=== PATIENT | male | born 1980 | race Caucasian/White ===

== ENCOUNTER 2020-10-19 11:45 | Emergency (ER) | payer OTHER, SELFPAY ==
[2020-10-19 12:01] VITALS: BP 154/94; PULSE 68; RESP 16; TEMP 36.6; O2SAT 98; BMI 34.1
--- NOTE | 2020-10-19 12:19 | XR_ITS ---
WS: [id number] Left leg including the tibia and fibula, AP and lateral views, 10/19/2020 Clinical Data: fall/calf pain Comparison: None. Findings: No fractures or dislocations are seen. The tibia and fibula are intact. The soft tissues are normal. XR/XR tibia fibula LT 2V [id number] Impression: Negative for left leg fracture.
--- NOTE | 2020-10-19 12:19 | XR_ITS ---
WS: [id number] Left knee, 3 views, 10/19/2020 Clinical Data: fall Comparison: None. Findings: No fractures or dislocations are seen. The joint spaces are normal. The patella is intact. The soft t issues are unremarkable. XR/XR knee LT 3V* [id number] Impression: Negative left knee.
--- NOTE | 2020-10-19 12:24 | ED_ITS ---
HPI - Extremity Problem General: Chief complaint: Extremity Injury, Lower Stated complaint: Lt leg pain Time Seen by Provider: 10/19/20 11:57 History of Present Illness: HPI Narrative: The patient is a 40-year-old male who comes to the ER complaining of left calf pain after he was playing with his puppy last night jerking left and right when he tripped left he had a sharp pain in his left calf radiating to his knee and down his leg. He took 600 of ibuprofen last night which did not help much and today he is unable to bear much weight on the left leg or at least walk with comfort. On the left side he walks with the front of his foot because it is painful to touch the heel to the ground where he has pain in his mid to proximal calf. MD Complaint: extremity pain Onset (ago): hour(s) (10) Location: left Quality: sharp Relieving factors: rest Exacerbating factors: range of motion, weight bearing, walking and palpation Associated symptoms: Reports no associated symptoms; Deny chest pain or rash Review of Systems General: Reports: 10 or more systems reviewed and unremarkable except in HPI and below Const: Denies: fatigue Eyes: Denies: change in vision, blurry vision or eye redness ENMT: Denies: throat pain, swelling of lips/tongue, ear or mastoid pain or nasal congestion Card: Denies: chest pain, palpitations, irregular heart rhythm, edema, dyspnea on exertion or orthopnea Resp: Denies: dyspnea, productive cough or non-productive cough GI: Denies: abdominal pain, diarrhea or GI cramping : Denies: flank pain, urinary frequency or urinary urgency Musc: Denies: neck pain, back pain, extremity pain, joint pain, joint redness, limited range of motion or muscle weakness Skin/Breast: Denies: rash, pruritus, erythema, skin pain or skin tenderness Neuro: Denies: headache(s), numbness in extremities, weakness in extremities, sensory changes, difficulty walking, dizziness, confusion or Slurred speech present Psych: Denies: anxiety or depression Endo: Denies: polyuria All/Imm: Denies: urticaria, throat swelling or tongue swelling Physical Exam Const: COMMON NORMALS: no acute distress, average body habitus, patient oriented x3, no limitations, healthy appearing, alert and well nourished GENERAL APPEARANCE: cooperative, comfortable, well kempt and well developed ORIENTATION/CONSCIOUSNESS: Yes awake, Yes oriented to person, Yes oriented to place and Yes oriented to time HENMT: COMMON NORMALS: normocephalic, external ears normal and Normal external nose present HEAD & SCALP: normal to inspection and normocephalic NOSE: Normal external nose present EXTERNAL EAR: Yes external ears normal MOUTH: Normal oral and palatal mucosa present THROAT: posterior oropharynx normal Eye: COMMON NORMALS: Equal, round and reactive pupils present and EOMs intact bilaterally GENERAL EYE: appearance normal, both eyes and all related structures PUPIL: Yes Equal, round and reactive pupils present Neck/C-Spine: COMMON NORMALS: full ROM, no lymphadenopathy, no meningeal signs and no JVD GENERAL: Yes normal visual inspection Lymph: LYMPHATIC: no lymphadenopathy noted Chest: COMMONS NORMALS: normal inspection of the chest and normal palpation of entire chest wall Resp: COMMON NORMALS: normal respiratory effort, No retractions, No use of accessory muscles, clear to auscultation bilaterally and percussion normal EFFORT & INSPECTION: Yes able to speak in complete sentences AUSCULTATION: clear to auscultation bilaterally PERCUSSION: percussion normal Cardio: COMMON NORMALS: no JVD, regular rate, regular rhythm, S1 normal heart sound present, S2 normal heart sound present and Peripheral pulses 2+ throughout RATE: regular rate RHYTHM: regular rhythm HEART SOUNDS: S1 normal heart sound present and S2 normal heart sound present PERIPHERAL PULSES: Peripheral pulses 2+ throughout GI: COMMON NORMALS: Normal to inspection, nondistended, normoactive bowel sounds present, Soft to palpation, non-tender and no masses INSPECTION: Yes normal to inspection PALPATION: Yes Soft to palpation : COMMON NORMALS: Yes no CVA tenderness BLADDER/KIDNEY EXAM: Yes no CVA tenderness Back/Pelvis: COMMON NORMALS: no CVA tenderness, thoracic and lumbar spine normal to inspection, no thoracic nor lumbar tenderness and thoraco-lumbar ROM normal Extremity: COMMON NORMALS: normal to inspection, full ROM, capillary refill normal, no joint enlargement and no pedal edema NARRATIVE EXTREMITY EXAM: Mild pain to the left knee and tibia region however the most prominent pain is in the calf more specifically the medial belly of the gastrocnemius or possibly the plantaris muscle. He has full range of motion but it is limited by pain. Neurovascularly intact distal to injury. Major ligaments in the knee and ankle intact. GENERAL: Yes normal exam except as noted Neuro: COMMON NORMALS: patient oriented x3, CN's II-XII intact bilaterally, moves all extremities, no focal motor deficits, no sensory deficits noted and gait normal SENSORIUM/ORIENTATION: Yes alert, Yes oriented to person, Yes oriented to place and Yes oriented to time MENINGEAL SIGNS: Yes no meningeal signs Psych: COMMON NORMALS: mental status grossly normal, Normal thought process present, cooperative, normal affect and speech normal APPEARANCE: Yes well kempt ATTITUDE: Yes calm SPEECH: Yes normal speech THOUGHT PROCESS: Normal thought process present Skin: COMMON NORMALS: no rashes or lesions noted GENERAL SKIN EXAM: no rashes or lesions noted Course Vital Signs: Vital signs: Vital Signs Temperature 97.9 F 10/19/20 12:01 Pulse Rate 68 10/19/20 12:01 Respiratory Rate 16 10/19/20 12:01 Blood Pressure 154/94 10/19/20 12:01 Pulse Oximetry 98 10/19/20 12:01 MDM - Extremity (Nontraumatic) MDM Narrative: Medical decision making narrative: The patient has either strained or torn part of his left gastrocnemius most likely. He is to take ibuprofen and set up care with primary care physician who will order an MRI within a week. Return to ER with worsening symptoms otherwise take ibuprofen and rest. I have placed a case management referral to help accomplish these goals. Patient and family understand and agree to follow plan of care Discharge Plan Discharge Patient Disposition: Home Clinical Impression: Strain of left calf muscle Condition: Stable Discharge Orders: Discharge ED (Routine); Ordered 10/19/20 Ordered By: Linwood Toro Referrals: Tamy An DO [Primary Care Provider] - Discharge Diet: Advance as tolerated Discharge Activity: Resume usual activity Patient Instructions: Muscle Cramp (ED), Opioid Safety Activity Restrictions/Additional Instructions: You have either strained or torn part of your left calf muscle. Please set up with a primary care physician in a few days and have them order an MRI of your leg. Take ibuprofen for pain and rest as you can. Return to the ER with worsening symptoms otherwise set up with primary care physician. I have placed a consult with our case checker who helps you set up a primary care appointment so please answer your phone within the next day or 2 to help this get accomplished. Coding Level of Care Code ED Pump Operator Byproducts for Chg Fwd Exam Comprehensive
[2020-10-19] MEDS: ibuprofen 800 mg tablet PO (12:38)
[2020-10-19 14:13] VITALS: BP 121/69; PULSE 68; RESP 16; O2SAT 97
--- NOTE | 2020-10-23 11:27 | DCPLANNER ---
Addendum entered by Siena Arellano 10/26/20 14:09: Patient stated that he would make follow up appointment. Original Note: training project manager received message to schedule appointment with a PCP. training project manager called patient and patient stated that he has already seen a PCP. He stated he seen Dr. Corbin at [facility].
== END 2020-10-19 13:20 | disposition home or self-care (01) ==
PROVIDERS: Emergency Provider Family Medicine; PCP Family Medicine
DX: S86.812A Strain of other muscle(s) and tendon(s) at lower leg level, left leg, initial encounter (principal); X58.XXXA Exposure to other specified factors, initial encounter; M79.605 Pain in left leg
CPT/HCPCS: 12345; 73562; 73590; 99283

== ENCOUNTER 2021-06-29 06:00 | Outpatient (RCR) | payer BC, SELFPAY | END 2021-07-08 23:59 | disposition home or self-care (01) | LOC: SPT 06:00 | PROVIDERS: PCP Family Medicine; Referring Provider Orthopaedic Surgery; Visit Provider Orthopaedic Surgery | DX: S86.112D Strain of other muscle(s) and tendon(s) of posterior muscle group at lower leg level, left leg, subsequent encounter (principal); X58.XXXD Exposure to other specified factors, subsequent encounter | CPT/HCPCS: 97161 ==

== ENCOUNTER 2021-10-24 11:13 | Outpatient (CLI) | payer BC, SELFPAY ==
[2021-10-24 13:45] LABS: D Dimer <= 0.27 ug/mIFEU (0-0.59)
== END 2021-10-24 11:14 | disposition home or self-care (01) ==
LOC: LAB 11:14
PROVIDERS: PCP Family Medicine; Visit Provider Nurse Practitioner Family
DX: R06.02 Shortness of breath (principal)
CPT/HCPCS: 85378

== ENCOUNTER → 2022-01-04 11:29 | Outpatient (BNVA) | payer BC, SELFPAY | PROVIDERS: PCP Nurse Practitioner Family; Visit Provider Nurse Practitioner Family | DX: E29.1 Testicular hypofunction (principal); R73.03 Prediabetes; R53.83 Other fatigue; R19.7 Diarrhea, unspecified; R06.02 Shortness of breath; J45.909 Unspecified asthma, uncomplicated | CPT/HCPCS: 71046; 80053; 80061; 82306; 82607; 83036; 83735; 84403; 84439; 84481; 84550; 85025; 85651; 86038; 86140; 86200; 86431 ==

== ENCOUNTER → 2022-01-07 09:15 | Outpatient (BNVA) | payer BC, SELFPAY | PROVIDERS: PCP Nurse Practitioner Family; Visit Provider Nurse Practitioner Family | DX: R19.7 Diarrhea, unspecified (principal) | CPT/HCPCS: 83630; 87338; 87493; 87506 ==

== ENCOUNTER → 2022-02-08 10:21 | Outpatient (BNVA) | payer BC, SELFPAY | PROVIDERS: PCP Nurse Practitioner Family; Visit Provider Family Medicine | DX: E29.1 Testicular hypofunction (principal) | CPT/HCPCS: 84403 ==

== ENCOUNTER → 2022-04-19 09:00 | Outpatient (BNVA) | payer BC, SELFPAY | PROVIDERS: PCP Nurse Practitioner Family; Visit Provider Family Medicine | DX: E29.1 Testicular hypofunction (principal); E55.9 Vitamin D deficiency, unspecified | CPT/HCPCS: 82306; 82652; 84403 ==

== ENCOUNTER → 2022-07-26 10:04 | Outpatient (BNVA) | payer BC, SELFPAY | PROVIDERS: PCP Nurse Practitioner Family; Visit Provider Nurse Practitioner Family | DX: R73.03 Prediabetes (principal); E55.9 Vitamin D deficiency, unspecified; E29.1 Testicular hypofunction | CPT/HCPCS: 80053; 80061; 82306; 83036; 84403; 85025 ==

== ENCOUNTER 2022-09-23 15:55 | Emergency (ER) | payer BC, SELFPAY ==
[2022-09-23 16:02] VITALS: BP 169/95; PULSE 108; RESP 15; O2SAT 94
--- NOTE | 2022-09-23 16:06 | XRR_ITS ---
PROCEDURE INFORMATION: Exam: XR Chest Exam date and time: 09/23/2022 4:30 PM Age: 42 years old Clinical indication: Cough and dyspnea; Additional info: Dyspnea/cough TECHNIQUE: Imaging protocol: Radiologic exam of the chest. Views: 1 view. COMPARISON: CR XR chest 2V* [id number] 01/04/2022 11:33 AM FINDINGS: Lungs: Unremarkable. No consolidation. Pleural spaces: Unremarkable. No pleural effusion. No pneumothorax. Heart/Mediastinum: Unremarkable. No cardiomegaly. Bones/joints: Unremarkable. XR/XR chest 1V portable [id number] IMPRESSION: No acute findings.
--- NOTE | 2022-09-23 16:06 | ECG_ITS ---
[facility] Test Date: 2022-09-23 Pat Name: Monico Borges Department: Room: Gender: Male News Reporter: : 1980 Requested By: Kian Peralta Order Number: [id number] Adalberto MD: Jarret Andre M.D. Measurements Intervals [place] Rate: 107 P: 31 FL: 132 QRS: 47 QRSD: 85 T: 20 QT: 282 QTc: 378 Interpretive Statements SINUS TACHYCARDIA NONSPECIFIC T-WAVE ABNORMALITY No previous ECG available for comparison Electronically Signed On 09-23-2022 18:41:58 PARK MANAGER by Jarret Andre M.D. [id number]
--- NOTE | 2022-09-23 16:17 | W.ED.ABDPA2 ---
HPI - Abdominal Pain General: Chief Complaint: Abdominal Pain Stated Complaint: FEVER/ DIARRHEA Time Seen by Provider: 09/23/22 16:06 Source: patient Mode of arrival: EMS History of Present Illness: 42-year-old male presents emergency room with complaint of abdominal pain and diarrhea and fever. He was initially seen at a walk-in clinic and directed to the emergency room arrives via EMS. Complains of epigastric upper abdominal pain. He was given Dilaudid and Phenergan in route. He denies any medic easy melena hematemesis or coffee-ground emesis he does describe his stools as darker the last several days. No dysuria urgency or frequency. No flank pain MD elicited complaint: abdominal pain Onset (ago): day(s) Pain Consistency: intermittent Location: Epigastric, LUQ and RUQ Severity: moderate Quality: cramping Radiation: none Migration to: no migration Exacerbating factors: nothing Relieving factors: nothing Associated Symptoms: Reports anorexia, change in bowel habits, change in stool character, GI cramping, nausea and poor appetite; Denies belching, bloating, chills, coffee ground emesis, constipation, diarrhea, dyspepsia, dysuria, excessive flatus, fever(s), heartburn, hematochezia, hematuria, hematemesis, fecal incontinence, loose stools, melena, syncope and vomiting Review of Systems Const: Denies: fever(s), chills, fatigue or malaise ENMT: Denies: throat pain, ear or mastoid pain, nasal discharge or nasal congestion Card: Denies: chest pain or syncope Resp: Denies: dyspnea, productive cough or non-productive cough GI: Reports: abdominal pain, nausea, GI cramping, change in bowel habits and change in stool character; Denies: vomiting, hematemesis, coffee ground emesis, heartburn, diarrhea, constipation, bloating, belching, excessive flatus, fecal incontinence, hematochezia or melena : Denies: dysuria, urinary frequency, urinary urgency or hematuria Musc: Denies: neck pain or back pain Skin/Breast: Denies: rash or pruritus [facility] ED PFSH: Medical History GERD (gastroesophageal reflux disease) Hypotestosteronemia in male Pre-diabetes Surgical History History of surgical removal of ganglion cyst Hx of appendectomy Hx of cholecystectomy Hx of eye surgery Hx of hand surgery Family History Mother Cancer Thyroid Family/Other Diabetes Denies family history of CAD (coronary artery disease) Clotting disorder Psychiatric illness Anesthesia complication Bleeding disorder Hypertension Stroke Social History Smoking and tobacco status: former smoker (quit 2019) Quit status (tobacco): has quit using tobacco Year quit tobacco: 2019 Former quit date comment: .5 PPD x 5 yrs Second hand smoke exposure: No Alcohol intake: current Alcohol intake frequency: holidays/special occasions only Caregiver/support person: Yes (spouse) Lives independently: Yes Household members: children Marital status: Current occupational status: employed Current occupation: [employer] History of recent travel: Yes Details: [place] Out of state: Yes Out of country: No Current gender identity: Male Special kari needs: No Agree to transfusion: Yes Physical Exam Const: COMMON NORMALS: no acute distress GENERAL APPEARANCE: cooperative and comfortable ORIENTATION/CONSCIOUSNESS: Yes awake, Yes oriented to person, Yes oriented to place and Yes oriented to time HENMT: COMMON NORMALS: normocephalic, atraumatic and hearing grossly normal bilaterally HEAD & SCALP: normocephalic and atraumatic Resp: COMMON NORMALS: normal respiratory effort, No retractions, No use of accessory muscles and clear to auscultation bilaterally AUSCULTATION: clear to auscultation bilaterally Cardio: COMMON NORMALS: regular rate, regular rhythm and No murmurs present (Cardio) RATE: regular rate RHYTHM: regular rhythm GI: COMMON NORMALS: No hepatosplenomegaly present AUSCULTATION: Yes normoactive bowel sounds PALPATION: Yes Tenderness to palpation present (GI) (Epigastric) Details: LUQ and RUQ, No Guarding due to palpation present (GI) and Yes No hepatosplenomegaly present Extremity: COMMON NORMALS: normal to inspection, capillary refill normal, no clubbing, cyanosis or edema, no calf tenderness and no pedal edema Neuro: SENSORIUM/ORIENTATION: Yes oriented to person, Yes oriented to place and Yes oriented to time Skin: COMMON NORMALS: no rashes or lesions noted GENERAL SKIN EXAM: no rashes or lesions noted Course Vital Signs: Vital signs: Vital Signs Temperature 103.6 F H 09/23/22 18:16 Pulse Rate 111 H 09/23/22 18:05 Respiratory Rate 19 H 09/23/22 18:05 Blood Pressure 177/100 09/23/22 18:05 Pulse Oximetry 93 09/23/22 18:05 Oxygen Delivery Me thod 09/23/22 18:05 MDM - Abdominal Pain Medical Decision Making Labs imaging and EKG reviewed. No anemia CT of the abdomen is unremarkable. EKG does not show any acute changes. Patient does have a temperature. Suspect he has a viral syndrome flu and COVID done in the emergency room are negative.. Recommend fluids Tylenol or Profen as needed recheck if not improving. He has no respiratory compromise. Repeat abdominal exam no acute abdomen findings noted Medical Records I reviewed the patient's medical records. Lab Data I reviewed the patient's lab results. 09/23/22 16:40 09/23/22 16:40 Labs/Radiology: Radiology Impressions Chest X-Ray 09/23/22 16:06 IMPRESSION: No acute findings. Abdomen/Pelvis CT 09/23/22 16:28 IMPRESSION: No acute findings. Laboratory Results WBC 10.7 10^3/uL (4.0-10.0) H 09/23/22 16:40 RBC 5.55 10^6/uL (4.1-5.3) H 09/23/22 16:40 Hgb 16.1 g/dL (11.7-16.6) 09/23/22 16:40 Hct 48.5 % (42.0-52.0) 09/23/22 16:40 MCV 87.4 fl (80-94) 09/23/22 16:40 MCH 29.0 pg (28.0-34.0) 09/23/22 16:40 MCHC 33.2 g/dL (30.0-36.0) 09/23/22 16:40 RDW 12.7 % (12.1-15.1) 09/23/22 16:40 Plt Count 164 10^3/cmm (130-400) 09/23/22 16:40 MPV 9.5 fL (7.4-10.4) 09/23/22 16:40 Neut % (Auto) 90.1 % 09/23/22 16:40 Lymph % (Auto) 5.1 % 09/23/22 16:40 Nuckolls % (Auto) 4.3 % 09/23/22 16:40 Eos % (Auto) 0.0 % 09/23/22 16:40 Baso % (Auto) 0.2 % 09/23/22 16:40 Neut # (Auto) 9.64 10^3/uL (1.8-7.7) H 09/23/22 16:40 Lymph # (Auto) 0.6 10^3/uL (0.8-4.8) L 09/23/22 16:40 Nuckolls # (Auto) 0.5 10^3/uL (0.2-0.9) 09/23/22 16:40 Eos # (Auto) 0.0 10^3/uL (0.0-0.8) 09/23/22 16:40 Baso # (Auto) 0.0 10^3/uL (0.0-0.1) 09/23/22 16:40 Nucleated RBC % (auto) 0 % 09/23/22 16:40 Nucleated RBCs # 0.0 /100WBC 09/23/22 16:40 Sodium 133 mmol/L (136-145) L 09/23/22 16:40 Potassium 3.9 mmol/L (3.5-5.1) 09/23/22 16:40 Chloride 97 mmol/L (98-107) L 09/23/22 16:40 Carbon Dioxide 25 mmol/L (22-29) 09/23/22 16:40 Anion Gap 14.9 (5-19) 09/23/22 16:40 BUN 15 mg/dL (6-20) 09/23/22 16:40 Creatinine 1.0 mg/dL (0.7-1.2) 09/23/22 16:40 GFR Calculation 82.3 mL/min (90-130) L 09/23/22 16:40 Glucose 129 mg/dL (65-115) H 09/23/22 16:40 Calculated Osmolality 279 mOsm/kg (285-295) L 09/23/22 16:40 Calcium 8.4 mg/dL (8.5-10.5) L 09/23/22 16:40 Total Bilirubin 0.7 mg/dL (0.15-1.2) 09/23/22 16:40 AST 30 U/L (0-40) 09/23/22 16:40 ALT 43 U/L (0-41) H 09/23/22 16:40 Alkaline Phosphatase 68 U/L (40-130) 09/23/22 16:40 Total Protein 6.8 g/dL (6.6-8.7) 09/23/22 16:40 Albumin 4.0 g/dL (3.5-5.2) 09/23/22 16:40 Globulin 2.8 g/dL (1.3-4.6) 09/23/22 16:40 Urine Color Yellow (Yellow) 09/23/22 17:42 Urine Appearance Clear (CLEAR) 09/23/22 17:42 Urine pH 5 (5-7) 09/23/22 17:42 Ur Specific [place] 1.025 (1.005-1.030) 09/23/22 17:42 Urine Protein 3+ (Negative) H 09/23/22 17:42 Urine Glucose (UA) Norm (Normal) 09/23/22 17:42 Urine Ketones 1+ (Negative) H 09/23/22 17:42 Urine Blood 3+ (Negative) H 09/23/22 17:42 Urine Nitrate Negative (Negative) 09/23/22 17:42 Urine Bilirubin Neg (Negative) 09/23/22 17:42 Urine Urobilinogen Norm mg/dL (Negative) 09/23/22 17:42 Ur Leukocyte Esterase Negative (Negative) 09/23/22 17:42 Urine RBC 0-4 /hpf (0-2) H 09/23/22 17:42 Urine WBC 0-4 /hpf (0-5) H 09/23/22 17:42 Ur Squamous Epith Cells Rare /hpf (0-5) 09/23/22 17:42 Amorphous Sediment Not Reportable 09/23/22 17:42 Urine Bacteria Trace /hpf (NONE) 09/23/22 17:42 Urine Mucus 1+ /hpf 09/23/22 17:42 Influenza Type A Ag negative (Negative) 09/23/22 16:53 Influenza Type B Ag negative (Negative) 09/23/22 16:53 Discharge Plan Discharge Patient Disposition: Home Clinical Impression: Abdominal pain Condition: Stable Prescriptions: New ondansetron HCl 4 mg tablet 4 mg PO Q6H PRN (Reason: nausea and vomiting) Qty: 20 0RF No Action diphenoxylate-atropine [Lomotil] 2.5-0.025 mg tablet 1 tab PO BID PRN (Reason: diarrhea) Qty: 60 2RF cetirizine [Zyrtec] 10 mg tablet 10 mg PO DAILY PRN (Reason: Allergy Symptoms) esomeprazole magnesium [Nexium] 20 mg capsule,delayed release(DR/EC) 20 mg PO DAILY (DME) BD Integra Syringe 3 mL 23 gauge x 1 syringe See Rx Instructions .ROUTE .COMPLEX Qty: 4 5RF Dose Instruction: USE DIRECTED TO ADMINISTER TESTOSTERONE Rx Instructions: USE DIRECTED TO ADMINISTER TESTOSTERONE testosterone cypionate [Depo-Testosterone] 200 mg/mL oil 200 mg SUBCUT .every two weeks Qty: 2 1RF metronidazole 500 mg tablet 500 mg PO TID 10 Days Qty: 30 0RF ciprofloxacin HCl 500 mg tablet 500 mg PO BID 10 Days Qty: 20 0RF ibuprofen 200 mg Tablet 400 mg PO Q6H PRN (Reason: Pain) ergocalciferol (vitamin D2) 1,250 mcg (50,000 unit) capsule 1,250 mcg PO Q7D Rx Instructions: ON FRIDAY Discharge Orders: Discharge ED (Routine); Ordered 09/23/22 Ordered By: Kian Michael Referrals: Ijeoma Renner FNP [Primary Care Provider] - Discharge Diet: Clear Liquid Patient Instructions: Abdominal Pain (ED), Opioid Safety, Pain Management Activity Restrictions/Additional Instructions: You were seen today for abdominal pain and fever. Your laboratory tests had no significant abnormalities. Your CT of your abdomen was negative for any acute pathology. Your urine was clear. Recommend that you stick with a clear liquid diet for the next several days use the antiemetics as needed. If your symptoms worsen or change return to emergency room. Coding Level of Care Code ED Design Studio Consultant for Anival Ricketts
[2022-09-23 16:28] VITALS: TEMP 39.4
--- NOTE | 2022-09-23 16:28 | CTR_ITS ---
PROCEDURE INFORMATION: Exam: CT Abdomen And Pelvis Without Contrast Exam date and time: 09/23/2022 5:35 PM Age: 42 years old Clinical indication: Fever and nausea and other: Diarrhea; Abdominal pain; Localized; Upper; Prior surgery; Surgery type: Appy, gb TECHNIQUE: Imaging protocol: Computed tomography of the abdomen and pelvis without contrast. Radiation optimization: All CT scans at this facility use at least one of these dose optimization techniques: automated exposure control; mA and/or kV adjustment per patient size (includes targeted exams where dose is matched to clinical indication); or iterative reconstruction. COMPARISON: CR XR chest 1V portable [id number] 09/23/2022 4:30 PM RADIATION DOSE METRICS: Total DLP (mGy-cm): 1029.86 FINDINGS: Liver: Normal. No mass. Gallbladder and bile ducts: Cholecystectomy. No ductal dilation. Pancreas: Normal. No ductal dilation. Spleen: Normal. No splenomegaly. Adrenal glands: Normal. No mass. Kidneys and ureters: No renal stones. No hydronephrosis. Stomach and bowel: Colonic diverticulosis. No obstruction. No mucosal thickening. Appendix: Appendectomy. Intraperitoneal space: Unremarkable. No free air. No significant fluid collection. Vasculature: Unremarkable. No abdominal aortic aneurysm. Lymph nodes: Unremarkable. No enlarged lymph nodes. Urinary bladder: Unremarkable as visualized. Reproductive: Unremarkable as visualized. Bones/joints: No acute fracture. Soft tissues: Unremarkable. CT/CT abdomen pelvis con [id number] IMPRESSION: No acute findings.
--- NOTE | 2022-09-23 16:42 | PC.PHAR ---
PT STATES HE TAKES CARE OF HIS OWN MEDICATIONS-PT STATES HE NO LONGER HAS SYMBICORT 160-4.5 2 P BID LAST FILLED 01/04/22 AND PROAIR 2P Q6H PRN PT STATES THOSE WERE JUST FROM WHEN HE HAD COVID-
[2022-09-23] MEDS: sodium chloride 0.9% 1,000 ML 999 ML IV ×2 (16:46→18:15)
[2022-09-23] MEDS: ondansetron 2 mg/ML SDV 2 mL 4 MG IVP (16:48)
[2022-09-23 16:52] VITALS: BP 164/81; PULSE 99; RESP 19; O2SAT 95
[2022-09-23 16:55] LABS: Basophils % 0.2 %; Hematocrit 48.5 % (42.0-52.0); Hemoglobin 16.1 g/dL (11.7-16.6); Lymphocytes # 0.6 10^3/uL (0.8-4.8); Lymphocytes % 5.1 %; Mean Corpuscular HGB Conc 33.2 g/dL (30.0-36.0); Mean Corpuscular Volume 87.4 fl (80-94); Mean Platelet Volume 9.5 fL (7.4-10.4); Monocytes # 0.5 10^3/uL (0.2-0.9); Monocytes % 4.3 %; Neutrophils # 9.64 10^3/uL (1.8-7.7); Neutrophils % 90.1 %; Nucleated Red Blood Cells % 0 %; Platelet Count 164 10^3/cmm (130-400); Red Blood Count 5.55 10^6/uL (4.1-5.3); Red Cell Distribution Width 12.7 % (12.1-15.1); White Blood Count 10.7 10^3/uL (4.0-10.0)
[2022-09-23 17:07] LABS: Alanine Aminotransferase 43 U/L (0-41); Alkaline Phosphatase 68 U/L (40-130); Anion Gap 14.9 (5-19); Aspartate Amino Transferase 30 U/L (0-40); Blood Urea Nitrogen 15 mg/dL (6-20); Calcium 8.4 mg/dL (8.5-10.5); Carbon Dioxide 25 mmol/L (22-29); Chloride 97 mmol/L (98-107); Globulin 2.8 g/dL (1.3-4.6); Glomerular Filtration Rate 82.3 mL/min (90-130); Glucose 129 mg/dL (65-115); Osmolality Calculated 279 mOsm/kg (285-295); Potassium 3.9 mmol/L (3.5-5.1); Sodium 133 mmol/L (136-145); Total Bilirubin 0.7 mg/dL (0.15-1.2); Total Protein 6.8 g/dL (6.6-8.7)
[2022-09-23 17:21] LABS: Influenza A by IFA negative (Negative); Influenza B by IFA negative (Negative)
[2022-09-23 18:05] VITALS: BP 177/100; PULSE 111; RESP 19; O2SAT 93
[2022-09-23 18:16] VITALS: TEMP 39.8
[2022-09-23 18:21] LABS: Blood Urine 3+ (Negative); Glucose Urine UA Norm (Normal); Ketones Urine 1+ (Negative); Nitrate Urine Negative (Negative); Protein Urine 3+ (Negative); Specific Gravity, Urine 1.025 (1.005-1.030); Urine Appearance Clear (CLEAR); Urine Color Yellow (Yellow); pH Urine 5 (5-7)
[2022-09-23 18:22] LABS: Add Urine Culture? No; Add Urine Microscopic? YES; Bacteria Urine TRACE /hpf; Bilirubin Urine Neg (Negative); Leukocyte Esterase Urine Negative (Negative); Mucus Urine 1+ /hpf; RBC Urine 0-4 /hpf (0-2); Squamous Epithelial Cell Urine RARE /hpf (0-5); Urobilinogen Urine Norm (Negative); WBC Urine 0-4 /hpf (0-5)
[2022-09-23] MEDS: ketorolac 30 mg/mL INJ IVP (18:22)
== END 2022-09-23 18:57 | disposition home or self-care (01) ==
PROVIDERS: Emergency Provider Family Medicine; PCP Nurse Practitioner Family
DX: R10.9 Unspecified abdominal pain (principal); Z87.891 Personal history of nicotine dependence; Z20.822 Contact with and (suspected) exposure to COVID-19
CPT/HCPCS: 36415; 71045; 74176; 80053; 81001; 85025; 87040; 87400; 87426; 87804; 93005; 96361; 96374; 96375; 99285; J1885; J2405; J7030

== ENCOUNTER → 2022-09-26 09:09 | Outpatient (BNVA) | payer BC, SELFPAY | PROVIDERS: PCP Nurse Practitioner Family; Visit Provider Nurse Practitioner Family | DX: R19.7 Diarrhea, unspecified (principal); E29.1 Testicular hypofunction | CPT/HCPCS: 80053; 83630; 83735; 84403; 84443; 85025; 87338; 87493; 87506 ==

== ENCOUNTER → 2022-12-12 10:10 | Outpatient (BNVA) | payer BC, SELFPAY | PROVIDERS: PCP Nurse Practitioner Family; Visit Provider Nurse Practitioner Family | DX: E29.1 Testicular hypofunction (principal); E55.9 Vitamin D deficiency, unspecified | CPT/HCPCS: 82306; 84403 ==

== ENCOUNTER → 2023-03-07 11:11 | Outpatient (BNVA) | payer BC, SELFPAY | PROVIDERS: PCP Nurse Practitioner Family; Visit Provider Nurse Practitioner Family | DX: R73.03 Prediabetes (principal); E29.1 Testicular hypofunction; E55.9 Vitamin D deficiency, unspecified | CPT/HCPCS: 80053; 80061; 82306; 82607; 83036; 84403; 84443; 85025 ==

== ENCOUNTER 2023-03-28 06:55 | Outpatient (CLI) | payer BC, SELFPAY ==
--- NOTE | 2023-03-28 08:15 | US_ITS ---
WS: [id number] Complete ABDOMINAL ULTRASOUND HISTORY: R74.8 - Abnormal levels of other serum enzymes COMPARISON: 12/02/2014 Liver: 15.8 cm in length. Normal size liver and echogenicity. No bile duct dilatation or mass. Portal Vein: Normal hepatopetal flow with monophasic waveform. Gallbladder: Cholecystectomy. CBD: 0.4 cm Pancreas: Obscured Right kidney: 10.4 cm x 7.0 x 5.6 cm. Cortex:1.3 cm. Normal size and echogenicity. No hydronephrosis or mass. Left kidney: 10.8 cm x 5.2 cm x 5.2 cm. Cortex: 1.2 cm. Normal size and echogenicity. No hydronephrosis or mass. Spleen: Normal size. 11.5 cm in length. Aorta and IVC: Unremarkable abdominal aorta and IVC. US/US abdomen complete* [id number] Impression: 1. Prior cholecystectomy. 2. Otherwise normal.
== END 2023-03-28 06:56 | disposition home or self-care (01) ==
PROVIDERS: PCP Nurse Practitioner Family; Visit Provider Nurse Practitioner Family
DX: R74.8 Abnormal levels of other serum enzymes (principal)
CPT/HCPCS: 76700

== ENCOUNTER → 2023-06-20 13:15 | Outpatient (BNVA) | payer BC, SELFPAY | PROVIDERS: PCP Nurse Practitioner Family; Visit Provider Nurse Practitioner Family | DX: E29.1 Testicular hypofunction (principal) | CPT/HCPCS: 84403 ==

== ENCOUNTER → 2023-09-12 09:30 | Outpatient (BNVA) | payer BC, SELFPAY | PROVIDERS: PCP Nurse Practitioner Family; Visit Provider Nurse Practitioner Family | DX: E29.1 Testicular hypofunction (principal); R73.03 Prediabetes; E55.9 Vitamin D deficiency, unspecified | CPT/HCPCS: 80053; 80061; 82306; 83036; 84403; 85025 ==

== ENCOUNTER 2023-10-10 16:21 | Outpatient (CLI) | payer BC, SELFPAY ==
--- NOTE | 2023-10-10 16:24 | XRR_ITS ---
PROCEDURE INFORMATION: Exam: XR Lumbosacral Spine Exam date and time: 10/10/2023 4:32 PM Age: 43 years old Clinical indication: Low back pain; Additional info: M54.50 - low back pain, unspecified TECHNIQUE: Imaging protocol: Radiologic exam of the lumbosacral spine. Views: 2 or 3 views. COMPARISON: CT abdomen pelvis wo con [id number] 09/23/2022 5:35 PM FINDINGS: Bones/joints: Mild reverse listhesis of L5 on S1 unchanged compared with prior CT. Moderate degenerative disc disease at this level. Remaining disc levels are preserved.No acute fracture or dislocation. Sclerosis at lower lumbar spine facet joints.Right upper quadrant surgical clips noted. Soft tissues: Unremarkable. XR/XR lumbar spine 2-3V* [id number] IMPRESSION: L5-S1 degenerative change and mild retrolisthesis.
== END 2023-10-10 16:22 | disposition home or self-care (01) ==
LOC: RAD 16:21
PROVIDERS: PCP Nurse Practitioner Family; Visit Provider Nurse Practitioner Family
DX: M51.37 Other intervertebral disc degeneration, lumbosacral region (principal); M43.17 Spondylolisthesis, lumbosacral region
CPT/HCPCS: 72100

== ENCOUNTER 2023-11-14 10:05 | Outpatient (CLI) | payer BC, SELFPAY ==
--- NOTE | 2023-11-14 11:00 | MR_ITS ---
WS: [id number] MRI LUMBAR SPINE NONCONTRAST HISTORY: M54.50 - Low back pain, unspecified COMPARISON: None available. TECHNIQUE: Sagittal and axial multisequence imaging is submitted. Survey image demonstrates disc osteophyte contact on the ventral cervical cord at C4-5, C5-6 and C6-7 . Lumbar alignment demonstrates mild straightening. Moderate disc base narrowing at L5-S1. No acute fra cture. Disc spaces and vertebral body heights are well-preserved. Conus terminates normally at L1-2 disc level. L1-L2: Normal. L2-L3: Normal. L3-L4: Mild bilateral omentum flavum and facet arthritis. No stenosis or disc protrusion. L4-L5: Mild annular disc bulging, asymmetric to the RIGHT. There is a shallow RIGHT foraminal disc pr otrusion causing mild stenosis of the RIGHT foramen. Moderate ligamentum flavum and bilateral facet a rthritis. No central stenosis. L5-S1: Mild annular disc bulging with a central disc protrusion. Mild osteophytosis. Very slightly gr eater contact on the RIGHT S1 nerve root by the disc protrusion. Mild RIGHT and moderate LEFT foramin al stenosis. Moderate facet arthropathy. IMPRESSION: 1. No acute fracture. 2. L4-5: Shallow RIGHT foraminal disc protrusion resulting in mild RIGHT foraminal stenosis. Moderat e facet and ligamentum flavum hypertrophy. 3. L5-S1: Shallow central disc protrusion with slightly greater contact on the RIGHT S1 nerve root b y the disc protrusion. Moderate LEFT and mild RIGHT foraminal stenosis.
== END 2023-11-14 10:06 | disposition home or self-care (01) ==
LOC: RAD 10:06
PROVIDERS: PCP Nurse Practitioner Family; Visit Provider Nurse Practitioner Family
DX: M51.26 Other intervertebral disc displacement, lumbar region (principal); M48.00 Spinal stenosis, site unspecified
CPT/HCPCS: 72148

== ENCOUNTER → 2024-03-10 10:06 | Outpatient (BNVA) | payer BC, SELFPAY | PROVIDERS: PCP Nurse Practitioner Family; Visit Provider Nurse Practitioner Family | DX: E55.9 Vitamin D deficiency, unspecified (principal); E29.1 Testicular hypofunction | CPT/HCPCS: 80053; 82306; 84403; 85025 ==

== ENCOUNTER 2024-05-28 06:00 | Outpatient (CLI) | payer BC, SELFPAY | END 2024-05-28 17:00 | disposition home or self-care (01) | LOC: LAB 06-11 07:40 | PROVIDERS: PCP Nurse Practitioner Family; Visit Provider Nurse Practitioner Family | DX: R53.83 Other fatigue (principal) | CPT/HCPCS: 80053; 82306; 82607; 83550; 83735; 84403; 84443; 85025 ==

== ENCOUNTER 2024-07-15 13:47 | Outpatient (CLI) | payer BC, SELFPAY | END 2024-07-15 13:48 | disposition home or self-care (01) | LOC: SLEEP 13:48 | PROVIDERS: PCP Nurse Practitioner Family; Visit Provider Nurse Practitioner Family | DX: G47.33 Obstructive sleep apnea (adult) (pediatric) (principal); G47.36 Sleep related hypoventilation in conditions classified elsewhere | CPT/HCPCS: G0399 ==

== ENCOUNTER → 2024-08-20 09:19 | Outpatient (BNVA) | payer BC, SELFPAY | PROVIDERS: PCP Nurse Practitioner Family; Visit Provider Nurse Practitioner Family | DX: E29.1 Testicular hypofunction (principal); M25.50 Pain in unspecified joint; R73.03 Prediabetes | CPT/HCPCS: 80053; 80061; 82306; 82607; 83036; 83735; 84403; 84443; 84550; 85025; 85651; 86038; 86140; 86200; 86431 ==

== ENCOUNTER → 2024-11-12 13:00 | Outpatient (BNVA) | payer BC, SELFPAY | PROVIDERS: PCP Nurse Practitioner Family; Visit Provider Nurse Practitioner Family | DX: R73.03 Prediabetes (principal); E29.1 Testicular hypofunction | CPT/HCPCS: 80053; 82040; 83036; 84270; 84403; 85025 ==

== ENCOUNTER 2025-01-11 07:17 | Outpatient (CLI) | payer BC, SELFPAY ==
--- NOTE | 2025-01-11 07:45 | US_ITS ---
WS: [id number] Limited abdomen ultrasound. HISTORY: Evaluate abdominal wall for hernia. Pain in the RIGHT upper quadrant along the rib cage. HISTORY: RIGHT upper abdominal pain. No peristalsing loops of bowel or defect along the anterior abdominal musculature identified. US/US abdomen limited [id number] IMPRESSION: No RIGHT upper quadrant hernia identified.
== END 2025-01-11 07:18 | disposition home or self-care (01) ==
PROVIDERS: PCP Nurse Practitioner Family; Visit Provider Emergency Medicine
DX: K21.9 Gastro-esophageal reflux disease without esophagitis (principal); R10.9 Unspecified abdominal pain
CPT/HCPCS: 76705

== ENCOUNTER 2025-01-14 10:16 | Outpatient (CLI) | payer BC, SELFPAY ==
[2025-01-14] MEDS: iohexol 350 mg/mL 500 mL Btl (per mL) IV (11:31)
--- NOTE | 2025-01-14 12:00 | CT_ITS ---
WS: [id number] CT ABDOMEN AND PELVIS WITH CONTRAST HISTORY: R10.31 - Right lower quadrant pain TECHNIQUE: Imaging performed of the abdomen and pelvis with IV contrast. Single phase imaging of the abdomen. Coronal and sagittal reformats are submitted. All CT scans at [facility] use at least one of these dose optimization techniques: automated exposure control; mA and/or kV adjustment per patient size (includes targeted exams where dose is matched to clinical indication); or iterative reconstruction. IV CONTRAST: Omnipaque 350; 100 mL IV. Oral contrast: Yes. DLP: 572.56 mGy.cm COMPARISON: 09/23/2022 Lower thorax: Lung bases are clear. Heart is normal size. Small hiatal hernia. Liver/biliary system: Normal size liver. Mild focal fatty sparing along the falciform ligament. Normal portal vein. Gallbladder: Status post cholecystectomy. Pancreas: Normal size pancreas and pancreatic duct. No adjacent inflammation. Spleen: Normal size spleen. No mass or infarct. Adrenal glands: Normal. Right kidney: Normal. Left kidney: Normal. Aorta: Normal. Lymphadenopathy: None. Free fluid: None. GI tract: Stomach is distended with oral contrast and food products. No small bowel obstruction. Prior appendectomy. No colitis. Numerous diverticula in the sigmoid colon but no evidence for acute diverticulitis. No pericolonic inflammation. Abdominal wall: Tiny umbilical hernia contains fat. Pelvis: Bilateral patent inguinal canals containing fat. Urinary bladder is negative. No free fluid or adenopathy. Bones: Degenerative disc disease at L5-S1 with foraminal osteophytes. No destructive bone process. Bony fusion across the RIGHT SI joint. CT/CT abdomen pelvis w con* [id number] IMPRESSION: 1. Prior cholecystectomy and appendectomy. 2. No acute abdominal or pelvic abnormalities identified. 3. Sigmoid diverticulosis without acute diverticulitis. 4. Tiny umbilical hernia.
== END 2025-01-14 10:17 | disposition home or self-care (01) ==
PROVIDERS: PCP Nurse Practitioner Family; Visit Provider Nurse Practitioner Family
DX: R10.31 Right lower quadrant pain (principal); Z90.49 Acquired absence of other specified parts of digestive tract; Z98.890 Other specified postprocedural states; K57.30 Diverticulosis of large intestine without perforation or abscess without bleeding; K44.9 Diaphragmatic hernia without obstruction or gangrene; R93.2 Abnormal findings on diagnostic imaging of liver and biliary tract; R93.5 Abnormal findings on diagnostic imaging of other abdominal regions, including retroperitoneum; M51.379 Other intervertebral disc degeneration, lumbosacral region without mention of lumbar back pain or lower extremity pain; M25.78 Osteophyte, vertebrae; R93.7 Abnormal findings on diagnostic imaging of other parts of musculoskeletal system
CPT/HCPCS: 74177

== ENCOUNTER → 2025-08-11 13:25 | Outpatient (BNVA) | payer BC, SELFPAY | PROVIDERS: PCP Nurse Practitioner Family; Visit Provider Nurse Practitioner Family | DX: E29.1 Testicular hypofunction (principal) | CPT/HCPCS: 80053; 80061; 82040; 84270; 84403; 84443; 85025; G0103 ==